=== PATIENT | female | born 2005 | race Caucasian/White ===

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

== ENCOUNTER 2024-06-08 10:28 | Emergency (ER) | payer BC, SELFPAY ==
[2024-06-08 10:55] VITALS: BP 126/77; PULSE 108; RESP 16; TEMP 37.1; O2SAT 100
--- NOTE | 2024-06-08 11:04 | ED_ITS ---
HPI - URI/Sore Throat General Chief Complaint: Upper Respiratory Infection Stated Complaint: sore throat/cold Time Seen by Provider: 06/08/24 11:05 History of Present Illness HPI Narrative: 18-year-old female presented for complaint of sore throat, cough, and nasal congestion for 1 week. States her symptoms are improving. Denies shortness of breath, wheezing nausea vomiting, fevers or chills. Multiple family members are sick with similar symptoms. Taking Tylenol for symptoms. Related Data Home Medications ?Medication ?Instructions ?Recorded ?Confirmed ?Last Taken ?Type No Home Medications 08/29/20 06/08/24 Unknown History Allergies Allergy/AdvReac Type Severity Reaction Status Date / Time No Known Allergies Allergy Verified 06/08/24 10:48 Review of Systems Review of Systems: CONSTITUTIONAL: Denies body aches, fever, chills, or sweats. EYES: Denies visual changes, redness, or discharge. ENT: reports rhinorrhea, congestion, sore throat CARDIOVASCULAR: Denies chest pain, palpitations, or edema. RESPIRATORY: Denies dyspnea. GASTROINTESTINAL: Denies abdominal pain, nausea, vomiting, or diarrhea. SKIN: Denies rash MUSCULOSKELETAL: Denies back pain, joint pain, or myalgia. NEUROLOGIC: Denies headache [facility] Surgical History Surgical History History of nasal surgery (~2019) broken nose closed reduction Family History Family History Mother Mucoepidermoid carcinoma of parotid gland Social History Social History Smoking status: Never smoker Alcohol intake: never Substance use: never Exam Narrative: GENERAL: well-appearing, no acute distress. EYES: conjunctivae clear ENT: Mucous membranes moist. TM pearly gallegos with normal light reflex bilaterally; no tragal tenderness. Oropharynx mildly erythematous without lesions. Tonsils not enlarged and without exudate. No drooling, no hoarseness, no trismus, uvula midline. No tripod positioning, hot potato voice, or soft pal ate swelling. NECK: Supple. No lymphadenopathy CHEST: Clear to auscultation, breath sounds equal. No respiratory distress, speaks in full sentences. HEART: Regular rate and rhythm. No murmur heard. SKIN: Warm, dry, no rash. NEURO: Alert and oriented x3. Course Course Emergency Course: Patient is aware of diagnosis, understands and agrees to treatment plan. Anticipatory guidance given. Patient agrees to follow-up as directed and is aware of reasons to seek care at the emergency department. Portions of this record may have been created with voice recognition software Level of Care: Express Care Visit Vital Signs Vital signs: Vital Signs Temperature 98.8 F 06/08/24 10:55 Pulse Rate 108 H 06/08/24 10:55 Respiratory Rate 16 06/08/24 10:55 Blood Pressure 126/77 06/08/24 10:55 Pulse Oximetry 100 06/08/24 10:55 Oxygen Delivery Room Air 06/08/24 10:55 Temperature 98.8 F 06/08/24 10:55 Pulse Rate 108 H 06/08/24 10:55 Respiratory Rate 16 06/08/24 10:55 Blood Pressure 126/77 06/08/24 10:55 Pulse Oximetry 100 06/08/24 10:55 Oxygen Delivery Room Air 06/08/24 10:55 MDM - URI/Sore Throat MDM Narrative Medical decision making narrative: neg strep result reviewed with pt. Advise supportive treatments. Patient is appropriate for outpatient treatment and follow-up. Differential Diagnosis Differential diagnosis: Likely upper respiratory infection, viral infection and pharyngitis Lab Data Labs: Lab Results 06/08/24 Range/Units 11:05 POC Grp A Strep Screen Negative (Negative) Discharge Plan Discharge Clinical Impression: Upper respiratory infection Patient Disposition: Home, Self-Care Condition: Stable Instructions: Antibiotic Form, Upper Respiratory Infection (ED) Additional Instructions: Rapid strep swab was negative today You will be notified in a few days if the culture comes back positive for strep, and appropriate antibiotics will be called in at that time. if symptoms are due to a viral illness, it is not treated with antibiotics. Viral symptoms can be present for up to 10-14 days. Recommend Flonase spray and Zyrtec for sinus congestion Cough syrup may cause drowsiness; avoid driving or take it at night time. Tylenol every 8 hours as needed for pain/fever Soft foods, cool liquids, warm tea. Gargle with warm saltwater twice a day. Chloraseptic spray and throat lozenges. Rest and stay hydrated. --Follow up with your PCP --Go to the ER immediately if you cannot swallow your saliva, trouble breathing/wheezing, throat swelling, pain is persistent and severe Patient Language: Indonesian Prescriptions: No Action No Home Medications Follow-up/Referrals: Cj,Alysa [Other] Time of Disposition: 11:15
[2024-06-08 11:07] LABS: EDSTREPNEGPOS1 Negative (Negative)
== END 2024-06-08 11:16 | disposition home or self-care (01) ==
PROVIDERS: Emergency Provider Nurse Practitioner Family
DX: J06.9 Acute upper respiratory infection, unspecified (principal)
CPT/HCPCS: 87081; 87880; 99213; G0463